=== PATIENT | male | born 1955 | race Caucasian/White ===

== ENCOUNTER 2018-06-17 11:06 | Day surgery (SDC) | payer OTHER ==
[~2018-06-17] VITALS: Ht 180.3 cm; Wt 97.5 kg
[2018-06-17] MEDS ORDERED: NS 1,000 ML IV ONE (12:30)
[2018-06-17] MEDS ORDERED: PROPOFOL 200 MG/20 ML VIAL As Ordered ONE (13:28)
--- NOTE | 2018-06-17 13:46 | ROOR ---
Patient Name: Kike Gutirerez Procedure Date: 06/17/2018 1:22 PM Date of : 1955 Age: 62 Room: [facility] Gender: Male Note Status: Finalized Procedure: Colonoscopy Indications: High risk colon cancer surveillance: Personal history of colonic polyps Providers: Jose Dick Jr, MD Referring MD: Leonard Barkley MD Requesting Provider: Medicines: Propofol per Anesthesia Complications: No immediate complications. Procedure: Pre-Anesthesia Assessment: - Prior to the procedure, a History and Physical was performed, and patient medications and allergies were reviewed. The patient is competent. The risks and benefits of the procedure and the sedation options and risks were discussed with the patient. All questions were answered and informed consent was obtained. Patient identification and proposed procedure were verified by the physician and the nurse in the pre-procedure area and in the procedure room. Mental Status Examination: alert and oriented. Airway Examination: normal oropharyngeal airway and neck mobility. Respiratory Examination: clear to auscultation. CV Examination: normal. ASA Grade Assessment: II - A patient with mild systemic disease. After reviewing the risks and benefits, the patient was deemed in satisfactory condition to undergo the procedure. The anesthesia plan was to use moderate sedation / analgesia (conscious sedation). Immediately prior to administration of medications, the patient was re-assessed for adequacy to receive sedatives. The heart rate, respiratory rate, oxygen saturations, blood pressure, adequacy of pulmonary ventilation, and response to care were monitored throughout the procedure. The physical status of the patient was re-assessed after the procedure. The Colonoscope was introduced through the anus and advanced to the cecum, identified by appendiceal orifice and ileocecal valve. The colonoscopy was performed without difficulty. The patient tolerated the procedure well. The quality of the bowel preparation was adequate. Findings: Multiple small and large-mouthed diverticula were found in the sigmoid colon. A few small and large-mouthed diverticula were found in the descending colon, transverse colon and ascending colon. Five polyps were found in the recto-sigmoid colon, sigmoid colon, transverse colon and ascending colon. The polyps were small in size. These polyps were removed with a hot snare. Resection and retrieval were complete. A medium polyp was found in the rectum. The polyp was semi-pedunculated. The polyp was removed with a piecemeal technique using a hot snare. Resection and retrieval were complete. Impression: - Diverticulosis in the sigmoid colon. - Diverticulosis in the descending colon, in the transverse colon and in the ascending colon. - Multiple small polyps at the recto-sigmoid colon, in the sigmoid colon, in the transverse colon and in the ascending colon, removed with a hot snare. Resected and retrieved. - One medium polyp in the rectum, removed piecemeal using a hot snare. Resected and retrieved. Recommendation: - Repeat colonoscopy in 3 years for surveillance. Jose Dick MD Jose Dick Jr, MD 06/17/2018 1:45:34 PM This report has been signed electronically. Number of Addenda: 0 Note Initiated On: 06/17/2018 1:22 PM Estimated Blood Loss: Estimated blood loss: none.
[2018-06-17 14:00] VITALS: BP 136/78
== END 2018-06-17 14:16 | disposition home or self-care (01) ==
LOC: M OPP 11:06
PROVIDERS: ATTEND Surgery
DX: Z86.010 Personal history of colon polyps (principal); D12.6 Benign neoplasm of colon, unspecified; D12.8 Benign neoplasm of rectum; K57.30 Diverticulosis of large intestine without perforation or abscess without bleeding

== ENCOUNTER → 2021-07-13 | Outpatient (CLI) | payer OTHER | LOC: M LABSMTC 11:09 | PROVIDERS: ATTEND Anesthesiology | DX: Z11.52 Encounter for screening for COVID-19 (principal); Z20.822 Contact with and (suspected) exposure to COVID-19 ==

== ENCOUNTER 2021-07-18 13:25 | Day surgery (SDC) | payer OTHER ==
[~2021-07-18] VITALS: Ht 177.8 cm; Wt 91.6 kg
[~2021-07-18 13:25] MED LIST: NS 1,000 ML IV ONE
[2021-07-18] MEDS ORDERED: propofoL 200 MG/20 ML VIAL As Ordered ONE ×2 (13:49→14:47)
[2021-07-18] MEDS ORDERED: LIDOCAINE 2% 100MG/5ML SDV (FOR ANES.) As Ordered ONE (13:49)
[2021-07-18 15:16] VITALS: BP 120/83
== END 2021-07-18 15:18 | disposition home or self-care (01) ==
LOC: M OPP 13:25
PROVIDERS: ATTEND Surgery
DX: Z86.010 Personal history of colon polyps (principal); K63.5 Polyp of colon; K57.30 Diverticulosis of large intestine without perforation or abscess without bleeding

== ENCOUNTER → 2023-08-27 | Outpatient (CLI) | payer MEDICARE, OTHER | LOC: M RAD 08:59 | PROVIDERS: ATTEND Family Medicine | DX: Z87.891 Personal history of nicotine dependence (principal) ==